=== PATIENT | male | born 1975 | race African-American/Black ===

== ENCOUNTER 2016-08-28 08:51 | Emergency (ER) | payer OTHER ==
[~2016-08-28] VITALS: Ht 182.9 cm; Wt 93.0 kg
[~2016-08-28 08:51] MED LIST: Z.0.NO CURRENT MEDS
[2016-08-28 08:53] VITALS: BP 125/65; PULSE 68; RESP 16; TEMP 97.9; O2SAT 95
[2016-08-28] MEDS ORDERED: LIDOCAINE HCL 1% 50 ML VIAL INFIL ONE (09:15)
[2016-08-28] MEDS ORDERED: BUPIVACAINE HCL PF 0.5% 10 ML VIAL INFIL ONE (09:15)
[2016-08-28] MEDS ORDERED: CEPH-460 PO (09:19)
[2016-08-28] MEDS ORDERED: BACT800T5 PO (09:19)
--- NOTE | 2016-08-28 09:19 | PD ---
HPI Chief Complaint: Injury Time Seen by Provider: 09:14 Travel History International Travel<30 days: No Contact w/Intl Traveler<30days: No Traveled to known affect area: No History of Present Illness HPI 41-year-old male presents to the emergency department for evaluation and to the right second finger on the lateral edge of the nailbed. He states this started 2 days ago. He denies any fevers or chills. He has no chronic medical problems and takes no medications. He denies any allergies. Patient is right- handed. He denies any other complaints. PFSH Social History Alcohol Use: No Tobacco Use: No Substance Use: No Allergies-Medications (Allergen,Severity, Reaction): Coded Allergies: No Known Allergies (Verified , 08/28/16) Reported Meds & Prescriptions Reported Meds & Active Scripts Active Keflex (Cephalexin) 500 Mg Cap 500 Mg PO Q6H 10 Days Bactrim DS (Sulfamethoxazole-Trimethoprim) 800-160 Mg Tab 1 Tab PO BID Review of Systems Except as stated in HPI: all other systems reviewed are Neg Physical Exam Narrative GENERAL: Well-developed well-nourished male patient, ambulatory. Afebrile. SKIN: Warm and dry. Patient has paronychia to the right lateral nailbed on the right second finger. HEAD: Normocephalic. Atraumatic. EYES: No scleral icterus. No injection or drainage. NECK: Supple, trachea midline. No JVD or lymphadenopathy. CARDIOVASCULAR: Regular rate and rhythm without murmurs, gallops, or rubs. RESPIRATORY: Breath sounds equal bilaterally. No accessory muscle use. Lungs sounds clear to auscultation MUSCULOSKELETAL: No cyanosis, or edema. Data Data Last Documented VS Vital Signs Date Time Temp Pulse Resp B/P Pulse Ox O2 Delivery O2 Flow Rate FiO2 08/28/16 08:53 97.9 68 16 125/65 95 Room Air Orders Wound Culture And Gram Stain (08/28/16 09:13) Bupivacaine Pf 0.5% Inj (Marcaine Pf 0.5 (08/28/16 09:15) Lidocaine 1% Inj (50 Ml) (Xylocaine 1% I (08/28/16 09:15) MDM Medical Decision Making Medical Screen Exam Complete: Yes Emergency Medical Condition: Yes Medical Record Reviewed: Yes Differential Diagnosis Paronychia versus felon versus abscess Narrative Course 41-year-old male presents to the emergency department for evaluation of infection to his right second finger. Physical exam is consistent with a paronychia. Patient gives verbal consent for incision and drainage. Patient is instructed on proper wound care. He will be discharged with a prescription for Bactrim and Keflex. The patient is agreeable. Procedures Procedure Narrative INCISION AND DRAINAGE OF ABSCESS: The area was prepped and was sterilely draped. A digital block with 1% lidocaine and 0.5% Marcaine was used to anesthetize the area. The area was properly anesthetized. A number 11 scalpel was used to make a 0.5-cm incision across the area of the abscess. Cultures were obtained. The abscess was drained an irrigated with normal saline. Sterile dressing applied. Diagnosis Primary Impression: Paronychia of finger of right hand Referrals: Primary Care Physician call for appointment Patient Instructions: General Instructions, Paronychia (ED) Additional Instructions: Clean twice daily with soap and water and apply [id number] antibiotic ointment. Take antibiotics as directed until gone. Warm moist compresses. Follow-up with a primary care physician. Return to the emergency department for any acute worsening of symptoms. Med/Other Pt SpecificInfo: Prescription(s) given Scripts Cephalexin (Keflex)500 Mg [id number] Mg PO Q6H 10 Days Ref 0 Prov:Radha White 08/28/16 Sulfamethoxazole-Trimethoprim (Bactrim DS)800-160 Mg Tab1 Tab PO BID #20 TAB Ref 0 Prov:Radha White 08/28/16 Disposition: 01 DISCHARGE HOME Condition: Stable Radha White Aug 28, 2016 09:19
== END 2016-08-28 10:16 | disposition home or self-care (01) ==
LOC: NEPB 08:51
DX: L03.011 Cellulitis of right finger (principal); B95.62 Methicillin resistant Staphylococcus aureus infection as the cause of diseases classified elsewhere
CPT/HCPCS: 26010; 86403; 87070; 87186

== ENCOUNTER 2017-01-14 14:26 | Emergency (ER) | payer SELFPAY ==
[~2017-01-14] VITALS: Ht 182.9 cm; Wt 95.0 kg
[~2017-01-14 14:26] MED LIST changes: +BACT800T5 PO; +CEPH-460 PO; -Z.0.NO CURRENT MEDS
[2017-01-14 14:28] VITALS: BP 128/78; PULSE 72; RESP 20; TEMP 97.4; O2SAT 99
[2017-01-14] MEDS ORDERED: ERYTOIN10 RIGHT EYE (15:00)
--- NOTE | 2017-01-14 15:00 | PD ---
HPI Chief Complaint: Eye Problems/Injury Time Seen by Provider: 14:55 Travel History International Travel<30 days: No Contact w/Intl Traveler<30days: No Traveled to known affect area: No History of Present Illness HPI Patient is a 41-year-old male presented to emergency department evaluation of right eye redness, tearing, irritation since this morning. Patient denies any foreign body sensation, he denies any pain with movement of the eye. Patient denies any visual changes, photophobia. PFSH Past Medical History Medical History: Denies Significant Hx Social History Alcohol Use: No Tobacco Use: No Substance Use: No Allergies-Medications (Allergen,Severity, Reaction): Coded Allergies: *MDRO Multi-Drug Resistant Organism (Verified Adverse Reaction, Unknown, ) MRSA (finger) - 08/28/16 Reported Meds & Prescriptions Reported Meds & Active Scripts Active Erythromycin Opth Oint 5 Mg/Gm Oint 1 Applic RIGHT EYE QID Keflex (Cephalexin) 500 Mg Cap 500 Mg PO Q6H 10 Days Bactrim DS (Sulfamethoxazole-Trimethoprim) 800-160 Mg Tab 1 Tab PO BID Review of Systems Except as stated in HPI: all other systems reviewed are Neg Eyes: Positive: Drainage, Redness, Tearing Physical Exam Narrative GENERAL: Well-nourished, well-developed patient. SKIN: Focused skin assessment warm/dry. HEAD: Normocephalic. EYES: No scleral icterus. Moderate injection to right eye, clear drainage noted. Extraocular movements are intact. Pupils are equal, round, reactive to light and accommodation. NECK: Supple, trachea midline. No JVD or lymphadenopathy. CARDIOVASCULAR: Regular rate and rhythm without murmurs, gallops, or rubs. RESPIRATORY: Breath sounds equal bilaterally. No accessory muscle use. GASTROINTESTINAL: Abdomen soft, non-tender, nondistended. MUSCULOSKELETAL: No cyanosis, or edema. BACK: Nontender without obvious deformity. No CVA tenderness. Data Data Last Documented VS Vital Signs Date Time Temp Pulse Resp B/P Pulse Ox O2 Delivery O2 Flow Rate FiO2 01/14/17 14:28 97.4 72 20 128/78 99 Room Air MDM Medical Decision Making Medical Screen Exam Complete: Yes Emergency Medical Condition: Yes Interpretation(s) Vital Signs Date Time Temp Pulse Resp B/P Pulse Ox O2 Delivery O2 Flow Rate FiO2 01/14/17 14:28 97.4 72 20 128/78 99 Room Air Differential Diagnosis Conjunctivitis versus episcleritis versus iritis versus other Narrative Course Patient is a 41-year-old male presenting with right eye redness and tearing since this morning. He denies any foreign body or foreign body sensation. He denies any photophobia. Physical examination is most consistent with conjunctivitis. Patient was advised on how to use medications. He is advised on strict hand washing procedures to avoid transmission/spread to the other eye or person. He was encouraged to follow-up with ophthalmology or return to emergency department for any new or worsening symptoms. Patient verbalized understanding of instructions. Patient is stable for discharge. Nurse's notes reviewed. Diagnosis Primary Impression: Conjunctivitis Qualified Code: H10.9 - Conjunctivitis of right eye, unspecified conjunctivitis type Referrals: Final Expense Agent Patient Instructions: Conjunctivitis (ED), General Instructions Departure Forms: Tests/Procedures, Work Release Enter return to work date: Jan 16, 2017 Additional Instructions: Use medications as directed Maintain strict hand washing to prevent transmission or spread Follow-up with first line production supervisor Return to emergency department for any new or worsening symptoms Med/Other Pt SpecificInfo: Prescription(s) given Scripts Erythromycin Opth Oint 5 Mg/Gm Oint1 Applic RIGHT EYE QID #1 TUBE Ref 0 Prov:Natalie Rodríguez 01/14/17 Disposition: 01 DISCHARGE HOME Condition: Stable Natalie Rodríguez January 14, 2017 15:00
== END 2017-01-14 16:14 | disposition home or self-care (01) ==
LOC: NEPK 14:26
DX: H10.9 Unspecified conjunctivitis (principal)
CPT/HCPCS: 99283